=== PATIENT | female | born 1955 | race Two or more races ===

== ENCOUNTER → 2018-08-04 | Day surgery (SDC) | payer OTHER ==
[~2018-08-04] MED LIST: ATACAND HCT 161 EACH PO; CYMBALTA60 MG PO; LIPITOR40 MG PO; PLAVIX75 MG PO
== END | disposition home or self-care (01) ==
LOC: ADM 07-29 11:30 → CIR.AMB 05:59
DX: Q51.3 Bicornate uterus (principal)